=== PATIENT | female | born 2000 | race African-American/Black ===

== ENCOUNTER 2021-04-28 02:08 | Emergency (ER) | payer OTHER ==
[~2021-04-28] VITALS: Ht 144.8 cm; Wt 52.6 kg
[2021-04-28 02:31] VITALS: BP 124/72
[2021-04-28] MEDS ORDERED: ACETAMINOPHEN325 MG PO (02:38)
[2021-04-28] MEDS ORDERED: MUCINEX600 MG PO (02:39)
[2021-04-28] MEDS ORDERED: TRANSDERM-SCOP1 EACH (02:41)
[2021-04-28] MEDS ORDERED: ONDANSETRON HCL4 M3 (02:41)
[2021-04-28] MEDS ORDERED: TESSALON PERLE100 MG PO (02:47)
[2021-04-28] MEDS ORDERED: ZOFRAN ODT4 MG PO (02:47)
== END 2021-04-28 03:06 | disposition home or self-care (01) ==
LOC: ER 02:08
DX: U07.1 COVID-19 (principal); R11.2 Nausea with vomiting, unspecified; Z79.899 Other long term (current) drug therapy